=== PATIENT | female | born 1950 | race Caucasian/White ===

== ENCOUNTER 2016-11-12 07:08 | Day surgery (SDC) | payer MEDICARE ==
[~2016-11-12] VITALS: Ht 170.2 cm; Wt 73.0 kg
--- NOTE | ~2016-11-12 | HP ---
PATIENT: MICHELL WANG MEDICAL RECORD: [id number] ACCOUNT: [id number] LOCATION:D.[facility] : 52 ADMISSION DATE: 11/12/16 HISTORY AND PHYSICAL EXAMINATION History and Physical Addendum The patient was found to have an anal mass on a hemorrhoid. Dr. Ye performed a colonoscopy. There is a polypoid mass located on a hemorrhoid. It was not biopsied at the time of colonoscopy due to fear of bleeding. The risks, possible complications and alternatives to procedure were explained to the patient. She elects to proceed. TRANSINT:[id number] Voice Confirmation ID: [id number] DOCUMENT ID: [id number] ENRIQUETA VAUGHN MD CC: ZAFAR DOMINGUEZ MD and ROSE YE MD [id number] DICTATION DATE: 11/12/16 1147 AUGER OPERATOR: 11/12/[address] [facility] [place], [place] 11/12/[address] [address]
--- NOTE | ~2016-11-12 | OP ---
PATIENT NAME: MICHELL WANG MEDICAL RECORD: [id number] :52 [facility] ADMISSION DATE: SURGEON: ENRIQUETA VAUGHN MD DATE OF OPERATION: 11/12/2016 PREOPERATIVE DIAGNOSIS: Anal mass on a hemorrhoid. Visualized colonoscopically. POSTOPERATIVE DIAGNOSIS: Anal mass on a hemorrhoid. Visualized colonoscopically. PROCEDURE: Single column hemorrhoidectomy. SURGEON: Enriqueta Vaughn MD. DATA CENTER ARCHITECT: None. BLOOD LOSS: Minimal. ANESTHESIA: General. COMPLICATIONS: None. The risks, possible complications and alternatives to procedure were explained to the patient. She elects to proceed. OPERATIVE FINDINGS: With U-shaped anoscopes, I carefully examined the anus and lower rectum. There were several anal papilla and these were removed with the Harmonic scalpel. I saw no definite verrucous lesions. No polypoid lesions. There was some nodularity to an internal hemorrhoid at 6 o'clock. For this reason, I excised that internal hemorrhoid. I saw no other suspicious lesions. OPERATIVE COURSE: The patient was conveyed to the operating room electively on 11/12/2016. General anesthesia was induced by anesthesia staff. The patient was placed in the lithotomy position. The anus and perianal areas were sterilely prepped and draped. U-shaped anal retractors were utilized to carefully examine the anus and lower rectum. I palpated as well as inspected the area quite carefully. Some anal papilla were removed and left for these. There was some nodularity to an internal hemorrhoid at 6 o'clock. I incised the anoderm at 6 o'clock. I then dissected up over the sphincteric muscles. There was no damage to the sphincteric muscles during this dissection. This was a sharp dissection. I then excised the internal and external hemorrhoidal complex. Subcutaneous flaps were created sharply. I then sutured the mucosa of the anus into the other side with a running locking 3-0 Vicryls. I then reinforced the closure with multiple interrupted horizontal mattress 3-0 Vicryls. Gelfoam was applied within the anus and rectum. A combination of a sterile preparation and a local anesthetic was used to infiltrate the perianal tissues. A topical anesthetic was applied to the external hemorrhoids. The patient was then extubated and conveyed to post-anesthesia care unit where she was in stable condition. TRANSINT:[id number] Voice Confirmation ID: [id number] DOCUMENT ID: [id number] OPERATIVE REPORT [id number] MICHELL WANG ROBERT MD CC: ZAFAR DOMINGUEZ MD and ROSE ECHOLS MD [id number] DICTATION DATE: 11/12/16 1157 TAKER OFF DRYING KILN: 11/12/162019 [facility] [place] 11/12/16 [place] [id number]
[~2016-11-12 07:08] MED LIST: AMBIEN10 MG PO; FERROUS SULFAT325 MG PO; GLUCOPHAGE500 MG PO; KLONOPIN1 MG PO; LIPITOR20 MG PO; OS-CAL500 MG PO; PROZAC20 MG PO; SYNTHROID25 MCG PO; VITAMIN D5000 UNIT PO; ZANAFLEX2 M1 PO; ZESTRIL40 MG PO
[2016-11-12 07:44] VITALS: BP 123/56; Ht 170.2 cm; Wt 73.0 kg
[2016-11-12 08:28] LABS: HEMATOCRIT 40.2 % (36.0-48.0); HEMOGLOBIN 12.7 g/dL (12-16); MCH 30.1 pg (26.0-34.0); MCHC 31.6 g/dL (31.0-37.0); MCV 95.3 fL (80.0-100.0); MEAN PLATELET VOLUME 10.2 fL (7.4-10.4); RBC 4.22 10x6/uL (4.00-5.40); RDW 14.6 % (11.5-14.5); WBC 8.4 10x3/uL (4.8-10.8)
[2016-11-12 08:36] LABS: ANION GAP 17.8 mmol/L (8-16); CALCIUM 9.5 mg/dL (8.5-10.1); CARBON DIOXIDE 21.2 mmol/L (21.0-32.0); CREATININE - SERUM 1.3 mg/dL (0.6-1.3)
== END 2016-11-12 15:17 | disposition home or self-care (01) ==
LOC: D.OPS 07:08 → D.PAN 09:45 → D.OPS 11:30
PROVIDERS: Anesthesiology
DX: K64.8 Other hemorrhoids (principal); Z01.812 Encounter for preprocedural laboratory examination

== ENCOUNTER 2017-06-06 17:20 | Emergency (ER) | payer MEDICARE ==
[2016-11-12 07:44] VITALS: BMI 25.2
[2017-06-06 18:10] LABS: BASOPHILS 0.1 % (0-2); EOSINOPHILS 0 % (0-7); HEMATOCRIT 36.9 % (36.0-48.0); HEMOGLOBIN 12.2 g/dL (12-16); IMMATURE GRANULOCYTES 0.6 % (0-5); LYMPHOCYTES 10.4 % (15-50); MCHC 33.1 g/dL (31.0-37.0); MCV 96.9 fL (80.0-100.0); MEAN PLATELET VOLUME 10.5 fL (7.4-10.4); MONOCYTES 5.2 % (2-11); NEUTROPHILS 83.7 % (40-80); PLATELET COUNT 231 10x3/uL (130-400); RBC 3.81 10x6/uL (4.00-5.40); RDW 13.7 % (11.5-14.5); WBC 15.7 10x3/uL (4.8-10.8)
[2017-06-06 18:24] LABS: ALBUMIN 3.8 g/dL (3.4-5.0); ALKALINE PHOSPHATASE 103 U/L (46-116); ALT (SGPT) 16 U/L (10-68); BILIRUBIN - TOTAL 0.34 mg/dL (0.2-1.3); CALC OSMOLALITY 283 mosm/kg (275-300); CALCIUM 9.2 mg/dL (8.5-10.1); CARBON DIOXIDE 26.2 mmol/L (21.0-32.0); CHLORIDE - SERUM 101 mmol/L (98-107); CREATININE - SERUM 1.4 mg/dL (0.6-1.3); GLUCOSE 140 mg/dL (74-106); POTASSIUM - SERUM 4.4 mmol/L (3.5-5.1); PROTEIN - SERUM 7.3 g/dL (6.4-8.2); SODIUM 140 mmol/L (136-145); UREA NITROGEN 21 mg/dL (7-18); eGFR NON AFRICAN AMERICAN 40 mL/min (90-120)
[2017-06-06 18:43] LABS: CHOL - HDL RATIO 5.2 ratio (2.3-4.1); CHOLESTEROL, TOTAL 156 mg/dL (0-200); CKMB 0.4 U/L (0.0-3.6); CREATINE KINASE 62 UL (21-215); HDL CHOLESTEROL 30 mg/dL (32-96); LDL CHOLESTEROL 89 mg/dL (0-100); TRIGLYCERIDE 188 mg/dL (30-200)
[2017-06-06 19:13] LABS: TROPONIN-I < 0.017 ng/mL (0.000-0.060)
[2017-06-06 19:16] LABS: INR 0.9 (0.85-1.17); PROTIME 11.7 SECONDS (11.6-15.0)
[2017-06-06 19:18] LABS: D-DIMER-QUANTITATIVE 0.28 ug/mLFEU (0.20-0.54)
[2017-06-06 19:52] LABS: APPEARANCE CLEAR (CLEAR); BILIRUBIN NEGATIVE (NEGATIVE); COLOR YELLOW (YELLOW); GLUCOSE NEGATIVE (NEGATIVE); KETONE NEGATIVE (NEGATIVE); NITRITE NEGATIVE (NEGATIVE); PROTEIN NEGATIVE (NEGATIVE); SPECIFIC GRAVITY 1.015 (1.005-1.020); UROBILINOGEN NORMAL (NORMAL)
[2017-06-06 19:57] LABS: BACTERIA FEW /hpf (NONE SEEN); YEAST RARE /hpf (NONE SEEN)
[2017-06-06 20:22] LABS: HELICOBACTER PYLORI IGG NEGATIVE (NEGATIVE)
== END 2017-06-06 21:33 | disposition home or self-care (01) ==
LOC: D.ER 17:20
PROVIDERS: Emergency Medicine; Nurse Practitioner Family
DX: F41.9 Anxiety disorder, unspecified (principal); N39.0 Urinary tract infection, site not specified; B37.9 Candidiasis, unspecified

== ENCOUNTER 2017-09-08 08:40 | Day surgery (SDC) | payer MEDICARE ==
[2017-09-05 10:50] LABS: HEMATOCRIT 38.8 % (36.0-48.0); HEMOGLOBIN 12.8 g/dL (12-16); MCH 32.1 pg (26.0-34.0); MCV 97.2 fL (80.0-100.0); MEAN PLATELET VOLUME 10.1 fL (7.4-10.4); RBC 3.99 10x6/uL (4.00-5.40); RDW 12.5 % (11.5-14.5); WBC 7.7 10x3/uL (4.8-10.8)
[~2017-09-08] VITALS: Ht 167.6 cm; Wt 75.8 kg
--- NOTE | ~2017-09-08 | OP ---
PATIENT NAME: MICHELL WANG MEDICAL RECORD: [id number] :52 LOCATION:[facility] ADMISSION DATE: SURGEON: SANJUANITA GOLD MD DATE OF OPERATION: 09/08/2017 PREOPERATIVE DIAGNOSIS: SLAP lesion of the left shoulder with impingement syndrome. POSTOPERATIVE DIAGNOSES: SLAP lesion of the left shoulder with impingement syndrome plus grade IV chondromalacia. PROCEDURES: 1. Arthroscopic chondroplasty of the humeral head. 2. Generalized debridement of the glenohumeral joint. 3. Subacromial decompression with acromioplasty and bursectomy. 4. Distal clavicle excision. SURGEON: Sanjuanita Gold MD ANESTHESIA: General. INTRAOPERATIVE COMPLICATIONS: None. SUMMARY OF PATHOLOGIC FINDINGS: As noted above. The patient was found to have much more severe arthritis than one might predict with MRI and x-rays with flaking of the humeral head component. The patient did indeed have a labral tear; however, I felt like it was contraindicated with the amount of arthritis the patient had to fix this rather than just debride it. OPERATIVE SUMMARY IN DETAIL: After obtaining the appropriate preoperative orthopedic consent as well as anesthetic consultation, evaluation, and clearance, the patient was brought to the operating room and placed on the operating table in supine position. After general laryngeal mask airway was administered, the patient was placed in the right lateral decubitus position. All pressure points were well padded to include down leg peroneal pad as well as axillary roll. The patient was held firmly to the operating table using the vacuum pack suction system. Left upper extremity and shoulder were prepped and draped in routine sterile fashion. The arm was held in Arthrex arm holding device at 30 degrees of forward flexion, 30 degrees of abduction, 10 pounds of traction laterally. Arthroscopy was established in the glenohumeral joint from the posterior portal. Anterior partial was established through the anterior safe interval. Diagnostic arthroscopy revealed the above findings. Resector was then utilized to clean up all the generalized chondral debris, also to takedown torn elements of the labrum. She also had flaking areas of the humeral head. These were taken back to stable areas of nonfull-thickness cartilage loss. She did have a central spot of full-thickness cartilage loss in the glenoid. Having completed this, attention was turned to the subacromial space. While in the subacromial space, the [place] tissue ablation system was utilized to denude the undersurface of the acromion of all soft tissue elements and release the coracoacromial ligament. A barrel bur was used to perform acromioplasty at the level of acromioclavicular joint. Lastly, through separate arthroscopic incision, distal 1 cm of the clavicle was excised as the patient had severe arthropathy at this joint as well. Having completed this, arthroscopy portals were closed in routine interrupted fashion using 4-0 Prolene. Sterile dressings were applied. The patient was awakened and taken to OPERATIVE REPORT [id number] MICHELL WANG the recovery room in stable condition. All final sponge and needle counts were correct. TRANSINT:[id number] Voice Confirmation ID: [id number] DOCUMENT ID: [id number] ASIF CHOW, SANJUANITA KATZ at 1657 CC: [id number] DICTATION DATE: 09/08/17 1419 CONSTRUCTION MANAGEMENT INSTRUCTOR: 09/08/17 1643 [facility] [address] [place] [id number]
[2017-09-08 10:18] VITALS: BP 140/47; Ht 167.6 cm; Wt 75.8 kg
[2017-09-08] MEDS ORDERED: HYDROCODONE-APA1 TAB PO (14:24)
== END 2017-09-08 16:40 | disposition home or self-care (01) ==
LOC: D.OPS 08:40 → D.PAN 11:00 → D.OPS 11:00 → D.PAN 12:05 → D.OPS 12:05 → D.PAN 14:45 → D.OPS 14:45
PROVIDERS: Anesthesiology
DX: S43.432A Superior glenoid labrum lesion of left shoulder, initial encounter (principal); M75.42 Impingement syndrome of left shoulder; M94.212 Chondromalacia, left shoulder; I10 Essential (primary) hypertension; E03.9 Hypothyroidism, unspecified; Z01.812 Encounter for preprocedural laboratory examination

== ENCOUNTER → 2017-11-20 19:33 | Outpatient (CLI) | payer MEDICARE ==
[2017-09-08 10:18] VITALS: BMI 27.0
[~2017-11-20 19:33] MED LIST changes: +HYDROCODONE-APA1 TAB PO
== END | disposition home or self-care (01) ==
LOC: D.MAMMO 13:00
DX: Z12.31 Encounter for screening mammogram for malignant neoplasm of breast (principal)

== ENCOUNTER → 2020-01-07 14:00 | Outpatient (CLI) | payer MEDICARE ==
[2017-09-08 10:18] VITALS: BMI 27.0
== END ==
LOC: D.MAMMO 14:00
PROVIDERS: ATTEND Nurse Practitioner Family
DX: Z12.31 Encounter for screening mammogram for malignant neoplasm of breast (principal)